=== PATIENT | female | born 1960 | race Native Hawaiian/Other Pacific Islander ===

== ENCOUNTER 2018-10-19 14:49 | Outpatient (CLI) | payer BC | END 2018-10-19 19:44 | disposition home or self-care (01) | LOC: MAMMO 14:49 | DX: Z12.31 Encounter for screening mammogram for malignant neoplasm of breast (principal) ==

== ENCOUNTER 2019-11-27 13:39 | Emergency (ER) | payer BC ==
[~2019-11-27] VITALS: Ht 170.2 cm; Wt 61.2 kg
[2019-11-27 17:43] VITALS: BP 123/72; TEMP 97.9
== END 2019-11-27 17:43 | disposition home or self-care (01) ==
LOC: ED 13:39
DX: S90.31XA Contusion of right foot, initial encounter (principal); W01.0XXA Fall on same level from slipping, tripping and stumbling without subsequent striking against object, initial encounter; Y93.89 Activity, other specified; Y92.89 Other specified places as the place of occurrence of the external cause
CPT/HCPCS: 99282; 99283

== ENCOUNTER 2020-06-17 13:51 | Outpatient (CLI) | payer BC | END 2020-06-17 21:27 | disposition home or self-care (01) | LOC: MAMMO 13:51 | DX: Z12.31 Encounter for screening mammogram for malignant neoplasm of breast (principal) ==